=== PATIENT | male | born 1940 | race Caucasian/White ===

== ENCOUNTER → 2017-07-29 | Outpatient (CLI) | payer MEDICARE ==
--- NOTE | 2017-07-29 13:06 | US ---
EXAMINATION TYPE: US venous doppler duplex LE LT DATE OF EXAM: 07/29/2017 12:54 PM COMPARISON: NONE CLINICAL HISTORY: 76-year-old male M79.609 Pain in lower limb, left side. Pain in left leg starting x 5 days ago SIDE PERFORMED: Left TECHNIQUE: The lower extremity deep venous system is examined utilizing real time linear array sonog lydia with graded compression, doppler sonography and color-flow sonography. FINDINGS: VESSELS IMAGED: External Iliac Vein (EIV) Common Femoral Vein Deep Femoral Vein Greater Saphenous Vein * Femoral Vein Popliteal Vein Small Saphenous Vein * Proximal Calf Veins (* superficial vessels) Left Leg: Negative for DVT IMPRESSION: No evidence for DVT within the left lower extremity imaged from the groin to the upper calf.
== END | disposition home or self-care (01) ==
LOC: RADUSWWP 12:26
PROVIDERS: ATTEND Internal Medicine
DX: M79.605 Pain in left leg (principal)

== ENCOUNTER → 2018-02-05 | Outpatient (CLI) | payer MEDICARE ==
[2018-02-05 13:46] LABS: Blood Urea Nitrogen 16 mg/dL (9-20)
--- NOTE | 2018-02-05 14:46 | CT ---
EXAMINATION TYPE: CT angio chest DATE OF EXAM: 02/05/2018 COMPARISON: None HISTORY: 77-year-old male shortness of breath, Pulmonary embolism without acute cor pulmonale TECHNIQUE: Contiguous axial scanning of the chest performed with IV Contrast, patient injected with 1 00 mL of Isovue 370. Coronal/sagittal MIP reconstructions performed. CT DLP: 620 mGycm Automated exposure control for dose reduction was used. FINDINGS: Heart normal size without pericardial effusion. Mitral annular calcifications are noted. Mild ectatic aortic root at 3.7 cm. Mild strandy changes within the aortic arch with apparent diverti cula of the left vertebral artery directly from the arch. No thoracic lymphadenopathy. Satisfactory opacification of the pulmonary arterial system. No evidence for pulmonary embolus. Evaluation of the lung show some strandy areas of atelectasis or scarring in the lower lungs with mil d diffuse bronchial wall thickening. A couple focal patches of groundglass in the left upper lobe, ax ial image 29 and 46 are nonspecific. Otherwise, no consolidation or pleural effusion. Mild biapical pleural-parenchymal scarring. Small hiatal hernia. Visualized upper abdomen shows a small nodular area of vascularity in the right hepatic dome probably vascular shunting or flash filling hemangioma. 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 Additional degenerative disc disease cervical thoracic junction. Reverse right total shoulder arthroplasty. Left shoulder tu berosity also present. IMPRESSION: 1. NO EVIDENCE FOR PULMONARY EMBOLUS. 2. MILD DIFFUSE BRONCHIAL WALL THICKENING COULD REPRESENT BRONCHITIS OR ASTHMA. 3. IN ADDITION, THERE ARE A COUPLE PATCHES OF GROUNDGLASS IN THE LEFT UPPER LOBE SUGGESTING NONSPECIF IC INFECTIOUS OR INFLAMMATORY FOCI. 4. SMALL HIATAL HERNIA.
== END | disposition home or self-care (01) ==
LOC: RADCTMAIN 12:42
PROVIDERS: ATTEND Internal Medicine
DX: J98.09 Other diseases of bronchus, not elsewhere classified (principal)
CPT/HCPCS: 82565; 84520; 71275; 36415; Q9967

== ENCOUNTER → 2020-09-12 | Outpatient (CLI) | payer MEDICARE ==
--- NOTE | 2020-09-12 12:12 | XR ---
EXAMINATION TYPE: XR foot complete RT DATE OF EXAM: 09/12/2020 COMPARISON: NONE HISTORY: Pain TECHNIQUE: Three views are submitted. FINDINGS: The osseous structures are intact. There is no acute fracture or dislocation. Moderate sized calca lee spurs. Arthropathy of the first MTP joint. Hypertrophic spurring is chronic deformity involving the distal fibula. IMPRESSION: 1. Severe first MTP arthropathy. 2. Calcaneal spurs.
== END | disposition home or self-care (01) ==
LOC: RADXRYALE 11:54
PROVIDERS: ATTEND Internal Medicine
DX: M12.871 Other specific arthropathies, not elsewhere classified, right ankle and foot (principal); M77.31 Calcaneal spur, right foot